=== PATIENT | female | born 1980 | race Caucasian/White ===

== ENCOUNTER 2017-03-14 17:36 | Emergency (ER) | payer OTHER ==
[~2017-03-14] VITALS: Ht 162.6 cm; Wt 54.4 kg
[2017-03-14] MEDS ORDERED: SILVER SULFADIAZINE 50GM CREAM TOP STA (17:45)
[2017-03-14] MEDS ORDERED: SILVER SULFADIAZINE 50GM CREAM TOP ONE (18:00)
== END 2017-03-14 18:08 | disposition home or self-care (01) ==
LOC: ER 17:36
DX: T65.891A Toxic effect of other specified substances, accidental (unintentional), initial encounter (principal); T25.411A Corrosion of unspecified degree of right ankle, initial encounter; Y92.513 Shop (commercial) as the place of occurrence of the external cause; E78.5 Hyperlipidemia, unspecified
CPT/HCPCS: 99284